=== PATIENT | female | born 1945 | race Caucasian/White ===

== ENCOUNTER → 2016-12-17 | Outpatient (CLI) | payer MEDICARE, OTHER | LOC: WI 10:11 | PROVIDERS: ATTEND Family Medicine | DX: M81.8 Other osteoporosis without current pathological fracture (principal) | CPT/HCPCS: 77080 ==

== ENCOUNTER 2019-06-07 11:54 | Day surgery (SDC) | payer MEDICARE, OTHER ==
[~2019-06-07 11:54] MED LIST: CHONDR SU A NA/HYALUR INTRAOC KIT (SURGICARE) ONE; EPINEPHRINE INJ/PF 1 MG/1 ML AMPULE ONE; KETOROLAC TROMETHAMINE 0.45% 4 DROP/0.4 ML DROPERETTE OD PRN; LIDOCAINE 1% INJ-PF (10 MG/ML) 30 ML SDV ONE
[2019-06-07] MEDS: TETRACAINE HCL 0.5% OPH SOLN 4 ML OD PRN ×3 (12:40→13:15)
[2019-06-07] MEDS: BESIFLOXACIN HCL 0.6% OPH SUSP 5 ML BOTTLE OD PRN ×4 (12:40→13:34)
[2019-06-07] MEDS: TROPICAMIDE 1% OPH SOLN 15 ML OD PRN ×3 (12:40→13:00)
[2019-06-07] MEDS: CYCLOPENTOLATE 0.2%/PHENYLEPHRINE 1% OPH SOLN 2 ML OD PRN ×3 (12:40→13:00)
[2019-06-07] MEDS ORDERED: MIDAZOLAM 2 MG/2 ML INJ ONE (12:57)
[2019-06-07] MEDS ORDERED: FENTANYL CITRATE INJ/PF 100 MCG/2 ML AMPUL ONE (12:57)
[2019-06-07] MEDS: DORZOLAMIDE HCL 2%/TIMOLOL MALEAT 0.5% OPH SOLN 10 ML OD PRN ×2 (13:20→13:34)
--- NOTE | 2019-06-30 16:52 | Operative Report ---
Operative Report-[facility] Operative Report: Preoperative Diagnosis: Nuclear, Cortical and Posterior Subcapsular Cataract, right eye Postoperative Diagnosis: Nuclear, Cortical and Posterior Subcapsular Cataract, right eye Procedure: Phacoemulsification and posterior chamber intraocular lens implant, right eye Procedure date: May Surgeon: Issa Gomez MD Licensing Worker: Uriah Duarte CRNA Anesthesia: Topical with IV Sedation Complications: none Tissue to pathology: none Estimated blood loss: none Indications for Surgery: Ms. Crane is a 74 zero female who presented to our clinic complaining of difficulty seeing to read and drive due to blurry vision in her right eye. On examination, she was found to have a best corrected visual acuity of 20/40 in the right eye. Ophthalmoscopy revealed a 1+ nuclear, 3+ cortical and 1+ posterior subcapsular cataract in the right eye with a normal appearing cornea, vitreous, retina and optic nerve.I discussed the findings of the exam with the patient. We discussed the risks, benefits and alternatives of cataract extraction and intraocular lens implant in the right eye as a means of improving her vision. Risks that were presented to the patient included infection, bleeding, retinal detachment and possible need for additional surgery.The patient understood that she may need to wear glasses after surgery. After our discussion, the patient indicated her interest in having this procedure performed by signing an informed, witnessed concert form. Report of Procedure: On the day of surgery, the patient was given a topical application to the right eye that consisted of drops of tetracaine 0.5%, tropicamide 1%, Cyclomidril, Besivance 0.6% and Acular 0.45%. The patient was then taken to the operating room in a supine position in a standard eye bed. Intravenous sedation was administered and she was prepped and draped in the standard ophthalmic fashion. A time out was performed to confirm with the surgical site. Attention was then directed to the right eye where a paracentesis was created at the 1130 position at the corneal limbus with a 15 blade. The anterior chamber was then filled with 0.3 mL of 1% methylparaben free lidocaine and after 30 seconds the interchange is filled with viscoelastic material. A 3-plane corneal incision was then made at the 9 oclock position at the corneal limbus with a keratome. A continuous collinear capsulorhexis was then made in the anterior capsule of the lens with a cystotome. The lens was hydra dissected used in balanced saline solu tion. The lens nucleus was removed by phacoemulsification using the stop and chop technique. CDE 11.37. The remaining cortical material was then removed from the posterior capsular bag using irrigation and aspiration.The posterior capsular bag was filled with viscoelastic material and a lens implant was inserted into the posterior capsular bag.The lens implant chosen for this case was a one piece acrylic lens from [employer] model [id number] serial number [id number] lens [place] 22.5 D. The lens was removed from its package, inspected and found to be free of defects. It was loaded into a [email or web address] D senior care assistant. The insured was passed through the temporal limbal wound and the lens with advanced into the posterior capsular bag. The lens was centered in the posterior capsular bag with a Matt spatula.The Visco elastic material was removed from the eye using irrigation and aspiration. The wounds were closed by stromal hydration and they were tested with Weck-nicole sponges and found to have no leaks. Intraocular pressure was assessed by manual palpation and found to be within physiologic range. The drapes and speculum were removed. Drops of Durezol, Combigan and gatifloxacin were instilled in the right eye. Periocular skin was cleaned with guys in the eye was covered with a shield. The patient was then taken to the recovery room in good condition. She tolerated the procedure very well. She was given a prescription for gatifloxacin, Durezol and Ilevro to use every two hours while awake today. She will return to my clinic for follow-up evaluation tomorrow.
== END 2019-06-07 14:13 | disposition home or self-care (01) ==
LOC: SC 11:54
PROVIDERS: ATTEND Ophthalmology
DX: H25.811 Combined forms of age-related cataract, right eye (principal); E11.9 Type 2 diabetes mellitus without complications; I10 Essential (primary) hypertension; J45.909 Unspecified asthma, uncomplicated; E66.9 Obesity, unspecified; Z79.51 Long term (current) use of inhaled steroids; Z79.82 Long term (current) use of aspirin; Z79.899 Other long term (current) drug therapy
CPT/HCPCS: 66984; 00142; V2632; J2250; J3490 ×3; A9270; J0171; J3010; 142